=== PATIENT | female | born 1950 | race Caucasian/White ===

== ENCOUNTER 2022-07-13 09:00 | Outpatient (RCR) | payer MEDICARE, SELFPAY ==
--- NOTE | 2022-06-09 12:54 | HP.PTEVAL_ITS ---
Patient's Visit Information JANE ROBLES is a 71 year old F referred to Physical Therapy by AGUSTINA SÁNCHEZ with a diagnosis of S/P LTKR (PATIENT REPORTS PARTIAL NOT TOTAL REPLACEMENT). Date of Evaluation: 06/09/22 Physical Therapist: Luna Arriaza, PT, Cert MDT - Visit Plan Frequency: 2-3x /Week Duration: 4-6 Weeks Plan: GAIT TRAINING AND L LE ROM, STRETCHING AND STRENGTHENING TO HELP MEET SET GOALS. - Subjective Work/Leisure: RETIRED. Disability: NO. Present symptoms: LEFT KNEE PAIN. Present since: SEPTEMBER 2021. Pain Scale: WORST 8/10, LEAST 1/10. Currently: /10. Is it getting better, worse or staying the same: GETTING A LITTLE BETTER. Commenced as a result of: NO APPARENT REASON. PATIENT REPORTS THAT ALL OF A SUDDEN IT JUST STARTED HURTING REALLY BAD AND SHE COULD BARELY WALK. Symptoms at onset: LEFT KNEE. Worse: INITIATING GAIT AFTER SITTING, CHANGE OF POSITION FROM KNEE STRAIGHT TO BENT AND KNEE BENT TO STRAIGHT. Better: GETTING UP AND WALKING AROUND, PAIN MEDICATION. Disturbed sleep: NO. Previous hi story/Previous treatment: CORTISONE SHOT IN SEPTEMBER AND PHYSICAL THERAPY IN OCTOBER AND NOVEMBER AND IT DIDN'T GET ANY BETTER. S/P L TKR 06/06/22. Gait: PATIENT REPORTS SHE IS GETTING AROUND ON HER WALKER FINE AND HASN'T TRIED CANE YET. PATIENT HAS A CANE. Bowel or Bladder Dysfunction: NO. Accidents: NO. Unexplained weight loss: NO. Imaging: DEC 28 2021: MRI - STRESS FX OF INNER KNEE, LARGE TEAR IN THE MENISCUS AND ARTHRITIS per PATIENT REPORT. PMH/Recent major surgery: HTN, HIGH CHOLESTEROL. OTHER: WEARING IDA ANKLE PUMPS 20 HOURS A DAY - ORDERED X 2 WKS. - Objective GAIT: THIS PATIENT AMBULATES INDEP'LY INTO PT TODAY WITH A FWW, DECREASED CADANCE AND VERY MILD LIMP ON THE LLE. NO LOB. WALKER APPEARS TO BE TOO LOW AND THIS PT ELEVATED IT ONE NOTCH. PATIENT IS GOING TO TRY NEW HEIGHT. WOMAC score: 69/96. TU.29 SEC. Girth L Patella 44 cm. Girth 6 inch suprapatella 51.5 cm. L knee flexion AROM: 108 degress. L knee ext AROM: MINUS 5. L knee flex MMT; 3-/5. L knee ext MMT 3-/5. L hip MMT 3+/5. R MMT: 5/5. Sensory deficit: L LE LIGHT TOUCH SENSATION INTACT. Palpation: L LE INCISIONS LOOK GOOD WITHOUT ANY SIGNS OF INFECTION. TREATMENT: REVIEWED HEP AND CHECKED TECHNIQUE: HEEL SLIDES IN CHAIR, SINK EX'S, SUPINE: HS'S, QS'S, SLR'S, STANDING L HIP FLEX, ABD AND HEEL RAISES. PATIENT EVAN'S GOOD EX RETURN TODAY. ADJUSTED WALKER AND REINFORCED PROPER GAIT TECHNIQUE WITH HEEL STRIKE AND TOE OFF PHASES OF GAIT. - Balance/Special Test Scores Lower Extremity Functional Score: 13 TUG Test Time Seconds: 18.29 30 Second Chair Rise Test Seconds: 6 WOMAC Total Score: 69 WOMAC Percentatge: 28.1300 - Goals Goal 1:: INDEP AND SAFE GAIT ON LEVEL SURFACES AND UP AND DOWN STEPS WITH LEAST ASSISTIVE DEVICE. Goal Time Frame: 4-6 Weeks Goal 2:: IMPROVE FUNCTIONAL L KNEE ROM TO EASE ADL'S Goal Time Frame: 4-6 Weeks Goal 3:: INCREASE FUNCTIONAL STRENGTH OF LLE TO EASE ADL'S. Goal Time Frame: 4-6 Weeks Goal 4:: PATIENT WILL BE INDEP WITH A HEP FOR CONTINUED IMPROVEMENT ONCE FORMAL PHYSICAL THERPAY CONCLUDES. Goal Time Frame: 4-6 Weeks - Anticipated Interventions Patient/Client Instruction: Educate patient on: Condition, Plan of Care, Risk Factors For the Purpose of:: To improve self management Therapeutic Exercise to Include: Strength training, Flexibilty training, Gait and locomotor training, Neuromotor development For the Purpose of:: To decrease pain, To increase ROM, To improve muscle performance and motor function, To increase tolerance to activity/c ondition/position, To improve ability of physical actions for home/community/work/leisure, To improve gait and locomotor functions Thank you for the opportunity to evaluate your patient. For Medicare and Medicare HMO plans, please review the plan of care and approve it. It will need to be FAXED BACK to us at [phone] for Medicare purposes. For Medicare only, by signing this I certify the plan of care. Please let me know if there are questions or concerns regarding this plan of care. Physician Signature: Date:_
--- NOTE | 2022-06-30 14:34 | HP.PTREVAL ---
AGUSTINA SÁNCHEZ, It has been my pleasure to treat JANE ROBLES over the last 10 visits for S/P LTKR (PATIENT REPORTS PARTIAL NOT TOTAL REPLACEMENT). Please see the progress note below for an update on the physical therapy plan of care! Subjective: I CAN WALK WITHOUT ASSISTANCE AND WALKED 2.5 MILES THE OTHER DAY. I CAN GO UP AND DOWN STEPS WITH ONE RAIL NOW. MY KNEE KNEE ISN'T SWOLLEN AND DOESN'T HURT MUCH BUT IT ACHES. I'VE BEEN CLEANING THE HOUSE, COOKING AND DOING THE LAUNDRY. PATIENT STATES SHE FEELS SHE COULD BENEFIT FROM SOME MORE THERAPY. STATES SHE IS STARTING TO COME AND EX ON HER OWN BUT ISN'T SURE HOW TO COMPLETELY MANAGE ON HER OWN AT THIS POINT - COULD BARELY WALK AFTER SHE EX'D ON HER OWN. GOT BETTER WITH REST, ICE AND TYLONOL. Objective/Function: PATIENT WAS SEEN TODAY FOR RE-ASSESSMENT OF PROGRESS TOWARD THE SET PT GOALS AND THE NEED FOR FURTHER PHYSICAL THERAPY VS READINESS FOR DISCHARGE. PATIENT IS MAKING GOOD PROGRESS AND IS A GOOD CANDIDATE TO CONTINUE PT. PATIENT IS AGREEABLE. UPON EXAM TODAY: GAIT: THIS PATIENT AMBULATES INDEP'LY INTO PT TODAY WITHOUT ANY AD'S AND VERY MILD LIMP ON THE LLE. NO LOB. WOMAC score: 19/96. TU.32 SEC. Girth L Patella 42 cm. Girth 6 inch suprapatella 49.5 cm. L knee flexion AROM: 123 degress. L knee ext AROM: 0 DEG. L knee flex MMT; 4/5. L knee ext MMT 4/5. L hip MMT 4/5. Sensory deficit: L LE LIGHT TOUCH SENSATION INTACT. Palpation: L LE INCISIONS LOOK GOOD WITHOUT ANY SIGNS OF INFECTION. Plan Plan: CONTINUE PT DECREASING TO 2X'S A WK X 2 WKS HELPING PATIENT TRANSITION TO SAFE INDEP GYM EX. GAIT TRAINING AND L LE ROM, STRETCHING AND STRENGTHENING TO HELP MEET SET GOALS. Balance/Gait/Functional tests - Balance/Special Test Scores Lower Extremity Functional Score: 51 TUG Test Time Seconds: 9.32 Tug Test: <10 sec.=free mobile 30 Second Chair Rise Test Seconds: 12 WOMAC Total Score: 19 WOMAC Percentage: 80.2100 Goals Goal 1:: INDEP AND SAFE GAIT ON LEVEL SURFACES AND UP AND DOWN STEPS WITH LEAST ASSISTIVE DEVICE. Goal Time Frame: 4-6 Weeks Goal Progress: Progressing Goal 2:: IMPROVE FUNCTIONAL L KNEE ROM TO EASE ADL'S Goal Time Frame: 4-6 Weeks Goal Progress: Progressing Goal 3:: INCREASE FUNCTIONAL STRENGTH OF LLE TO EASE ADL'S. Goal Time Frame: 4-6 Weeks Goal Progress: Progressing Goal 4:: PATIENT WILL BE INDEP WITH A HEP FOR CONTINUED IMPROVEMENT ONCE FORMAL PHYSICAL THERPAY CONCLUDES. Goal Time Frame: 4-6 Weeks Goal Progress: Progressing Anticipated Interventions Patient/Client Instruction: Educate patient on: Condition, Plan of Care, Risk Factors For the Purpose of:: To improve self management Therapeutic Exercise to Include: Strength training, Flexibilty training, Gait and locomotor training, Neuromotor development For the Purpose of:: To decrease pain, To increase ROM, To improve muscle performance and motor function, To increase tolerance to activity/condition/position, To improve ability of physical actions for home/community/work/leisure, To improve gait and locomotor functions Please do not hesitate to contact me at [phone] by phone or if you have questions or concerns regarding this new plan of care! Sincerely, Luna Arriaza, PT, Cert MDT
--- NOTE | 2022-07-13 10:00 | HP.PTDCSUM ---
It has been my pleasure to treat JANE ROBLES referred by AGUSTINA SÁNCHEZ, with the diagnosis of S/P LTKR (PATIENT REPORTS PARTIAL NOT TOTAL REPLACEMENT) for a total of 14 visit(s). Discharge Date: Please see the following information for a summary of their discharge status. Subjective: PATIENT REPORTS STEPS ARE GOING BETTER. STATES THESE LAST 4 VISITS HAVE MADE A BIG DIFFERENCE AND SHE FEELS GOOD ABOUT CONTINUING ON HER OWN NOW. L knee Pain Intensity (Out of 10): 0 % Improvement: 75 Objective/Function: PATIENT WAS SEEN TODAY FOR RE-ASSESSMENT OF PROGRESS TOWARD THE SET PT GOALS AND THE NEED FOR FURTHER PHYSICAL THERAPY VS READINESS FOR DISCHARGE. ALL GOALS MET. APPROPRIATE FOR DISCHARGE. PATIENT IS AGREEABLE. UPON EXAM TODAY: GAIT: THIS PATIENT AMBULATES INDEP'LY INTO PT TODAY WITHOUT ANY AD'S AND VERY MILD LIMP ON THE LLE. NO LOB. ABLE TO ASCEND AND DESCEND FLIGHT OF STEPS WITHOUT UE ASSIST OR GROSS DEVIATION NOTED. WOMAC score: 10/96. L knee flexion AROM: 125 degress. L knee ext AROM: 0 DEG. L knee flex MMT; 4/5. L knee ext MMT 4/5. L hip MMT 4/5. Sensory deficit: L LE LIGHT TOUCH SENSATION INTACT. Palpation: L LE INCISIONS LOOK GOOD WITHOUT ANY SIGNS OF INFECTION. Goal 1:: INDEP AND SAFE GAIT ON LEVEL SURFACES AND UP AND DOWN STEPS WITH LEAST ASSISTIVE DEVICE. Goal Progress: Goal Met Goal 2:: IMPROVE FUNCTIONAL L KNEE ROM TO EASE ADL'S Goal Progress: Goal Met Goal 3:: INCREASE FUNCTIONAL STRENGTH OF LLE TO EASE ADL'S. Goal Progress: Goal Met Goal 4:: PATIENT WILL BE INDEP WITH A HEP FOR CONTINUED IMPROVEMENT ONCE FORMAL PHYSICAL THERPAY CONCLUDES. Goal Progress: Goal Met Plan: D/C TO INDEP EX. PATIENT IS AGREEABLE. If there are questions or concerns regarding this patient's physical therapy, please feel free to call me at [phone]. Thank you for the referral of this patient. Sincerely, Luna Arriaza, PT, Cert MDT Balance/Gait/Functional tests - Balance/Special Test Scores Lower Extremity Functional Score: 51 TUG Test Time Seconds: 9.32 Tug Test: <10 sec.=free mobile 30 Second Chair Rise Test Seconds: 12 WOMAC Total Score: 10 WOMAC Percentage: 89.5900
== END 2022-07-13 10:09 | disposition home or self-care (01) ==
LOC: PT 09:00
PROVIDERS: PCP Family Medicine
DX: Z96.652 Presence of left artificial knee joint (principal)
CPT/HCPCS: 97110; 97162; 97164; 97530

== ENCOUNTER 2022-10-13 10:51 | Observation (INO) | payer MEDICARE, SELFPAY ==
[2022-10-13] VITALS (8 sets, daily range): BP systolic 132–174; BP diastolic 72–99; PULSE 52–65; RESP 14–18; TEMP 36.4–36.8; O2SAT 95–99; BMI 27.0; BMI 27.1
--- NOTE | 2022-10-13 10:56 | ED.RN ---
PATIENT PLACED IN ROOM 2 WHILE I COMPLETED DOCUMENTING ON TRIAGE, DR. US NOTIFIED OF PRESENTING SYMPTOMS OF LOSS OF BALANCE.
--- NOTE | 2022-10-13 11:03 | ED.RN ---
pa at bedside at 1100.
--- NOTE | 2022-10-13 11:05 | EKG12_ITS ---
Test Reason : DIZZINESS Blood Pressure : / mmHG Vent. Rate : 056 BPM Atrial Rate : 056 BPM P-R Int : 198 ms QRS Dur : 076 ms QT Int : 440 ms P-R-T Axes : 024 004 -13 degrees QTc Int : 424 ms Sinus bradycardia Nonspecific T wave abnormality Abnormal ECG Confirmed by RACHEL HUNTER, SMITH ([id number]), communications editor KARIS HOBSON ([id number]) on 10/16/2022 10:48:02 A M Referred By: Confirmed By:ABDULLAHI RAMOS MD
--- NOTE | 2022-10-13 11:08 | EX.ED.DYSGE1 ---
HPI <BREE Andino - Last Filed: 10/14/22 14:31> History of Present Illness Chief Complaint: Dizziness Narrative Narrative: Patient presenting to have feelings of lightheadedness that she has had since this morning when she first woke up. She reports that she woke up around 7 AM to use the bathroom and felt lightheaded, almost like she could fall over. She reports that whenever she goes to ambulate she feels this way but feels asymptomatic at rest. She does not feel like the room is spinning. She also reports abdominal bloating that started this morning but denies any nausea, vomiting, abdominal pain, constipation, or diarrhea. She denies any recent illness, fever, chills, chest pain, shortness of breath. PMH includes hyperlipidemia and hypertension. PFSH <BREE Andino - Last Filed: 10/14/22 14:31> PFSH Medical History Arthroplasty of knee planned Tonsillectomy planned Home Medications calcium carbonate 600 mg-vitamin D3 20 mcg (800 unit) tablet 1 ea PO DAILY 01/08/15 [History Last Taken Unknown] simvastatin 20 mg tablet 20 mg PO QHS 01/08/15 [History Last Taken Unknown] aspirin 81 mg tablet,delayed release 81 mg PO DAILY 10/13/22 [History Last Taken Unknown] lisinopril 2.5 mg tablet 2.5 mg PO DAILY 10/13/22 [History Last Taken Unknown] Allergy/AdvReac Type Severity Reaction Status Date / Time No Known Allergies Allergy Verified 10/13/22 10:56 Family History (Updated 10/13/22 @ 15:[address] Randolph Kennedy MD) Mother CVA (cerebral vascular accident) Social History Smoking Status: Never smoker ROS <BREE Andino - Last Filed: 10/14/22 14:31> ROS ED Constitutional Constitutional ED: Denies chills or fever(s) Eyes Eyes: Denies blurry vision Cardiovascular Cardiovascular: Denies chest pain or palpitations Respiratory/Chest Respiratory/Chest: Denies cough or dyspnea Gastrointestinal Gastrointestinal: Denies abdominal pain, nausea or vomiting Musculoskeletal Musculoskeletal: Denies arthralgias or myalgias Integumentary Denies rash Neurologic Neurologic: Denies confusion, dizziness, paresthesias or weakness Psychiatric Psychiatric: Denies anxiety or depression EXAM <BREE Andino - Last Filed: 10/14/22 14:31> Physical Exam Const Vital Signs: 10/13/22 15:05 Pulse Rate 52 L Respiratory Rate 17 Blood Pressure 157/81 H Blood Pressure Mean 106 Pulse Ox 98 Positive well nourished, well developed and no apparent distress General Appearance ED: well developed HEENT Reports normocephalic and head/scalp atraumatic Mouth ED: Yes moist mucous membranes normal Eyes PERRL and EOMs intact bilaterally Neck full ROM and supple Chest Wall inspection of chest normal Resp normal respiratory effort and clear to auscultation bilaterally Cardio regular rate and regular rhythm GI soft to palpation, non-tender, non-distended and no masses Back/Spine normal ROM and normal to inspection Extremity normal to inspection and full ROM Neuro oriented x3, CN's II-XII intact bilaterally, moves all extremities, no focal motor deficits and no sensory deficits noted Sensorium / Orientation: awake and alert Coordination / Balance: [id number] test normal Gait (Neuro): ataxic Motor Exam: strength 5/5 throughout and no pronator drift Psych mental status grossly normal and thought process normal Skin no rashes or lesions noted and no wounds <Lan Moscoso MD - Last Filed: 10/14/22 22:13> Physical Exam Const Vital Signs: 10/13/22 15:05 Pulse Rate 52 L Respiratory Rate 17 Blood Pressure 157/81 H Blood Pressure Mean 106 Pulse Ox 98 MDM <BREE Andino - Last Filed: 10/14/22 14:31> [facility] Narrative Medical decision making narrative: Patient presenting today due to lightheadedness that started this morning when she woke up. She only feels lightheaded when she ambulates, she does not feel this way at rest. She reports feelings of abdominal bloating without any abdominal pain, nausea, or vomiting. She is well-appearing and in no acute distress, vitals are unremarkable. No prior history of TIA or stroke, she is not having any chest pain or shortness of breath. Labs will be obtained to rule out anemia, leukocytosis, LONG, electrolyte abnormality. Labs overall are unremarkable, troponin WNL and EKG sinus bradycardia, ruling out ACS. Given her abdominal bloating, CT of the abdomen and pelvis will be obtained to rule out SBO and other etiology. CT shows fatty liver and a hemartoma to the left adnexa. Patient was ambulated by nursing and felt like she was going to fall over, nurse reported that it looked like she was not walking in a completely straight line. She was given meclizine and ambulated again about 45 minutes after administration, she reported it did help her symptoms some but she still felt off balance. Because of this, head CT was obtained and is negative for any acute intracranial abnormality. There are concerns for posterior stroke, her NIH is 0. I discussed patient with hospitalist and she will be admitted in stable condition for further evaluation and work-up. She is comfortable with plan. Lab Data Attestation: I reviewed the patient's lab results. Labs: Laboratory Results - last 24 hr 10/13/22 11:02 Troponin I High Sens 5 Radiography Diagnostic Testing: Clinical Impression(s) from Imaging Studies Abdomen/Pelvis CT 10/13/22 11:12 IMPRESSION: Fatty infiltration of the liver. Scattered sigmoid diverticula. Findings suggestive of an 8.3 mm hamartoma in the left adnexa. Electronically Signed: David Baeza MD at 11:59 EDT , Brain CT 10/13/22 14:21 IMPRESSION: Chronic involutional changes of the brain. Electronically Signed: David Baeza MD at 14:51 EDT , EKG Initial EKG: Comments: 56 bpm, sinus bradycardia, no ST elevation, reviewed and interpreted by attending ED physician <Lan Moscoso MD - Last Filed: 10/14/22 22:13> [facility] MDM Narrative Medical decision making narrative: Patient presenting today due to lightheadedness that started this morning when she woke up. She only feels lightheaded when she ambulates, she does not feel this way at rest. She reports feelings of abdominal bloating without any abdominal pain, nausea, or vomiting. She is well-appearing and in no acute distress, vitals are unremarkable. No prior history of TIA or stroke, she is not having any chest pain or shortness of breath. Labs will be obtained to rule out anemia, leukocytosis, LONG, electrolyte abnormality. Labs overall are unremarkable, troponin WNL and EKG sinus bradycardia, ruling out ACS. Given her abdominal bloating, CT of the abdomen and pelvis will be obtained to rule out SBO and other etiology. CT shows fatty liver and a hemartoma to the left adnexa. Patient was ambulated by nursing and felt like she was going to fall over, nurse reported that it looked like she was not walking in a completely straight line. She was given meclizine and ambulated again about 45 minutes after administration, she reported it did help her symptoms some but she still felt off balance. Because of this, head CT was obtained and is negative for any acute intracranial abnormality. There are concerns for posterior stroke, her NIH is 0. I discussed patient with hospitalist and she will be admitted in stable condition for further evaluation and work-up. She is comfortable with plan. I have personally performed a face to face assessment of the patient and have reviewed the MACY Note. I performed a substantive portion of the visit including all aspects of the following. My shabazz findings include: History is dizziness and lightheadedness. Exam is afebrile. Vital signs noted. Regular rate and rhythm. Lungs clear to auscultation bilaterally. Abdomen soft and nontender. Neurological examination nonfocal and nonlateralizing. Medical Decision Making check labs. Check EKG. CT of the brain obtained, radiology report reviewed, no acute process. Administer meclizine. Unsteady gait continues with intractable vertigo. Discussed with hospitalist. Observation. Other additions or changes: [None] History & Record Review Discussion w/independent historian: Patient and Family Additional record(s) reviewed:: Prior ED visit Lab Data Labs: Laboratory Results - last 24 hr 10/13/22 11:02 Troponin I High Sens 5 Radiography Diagnostic Testing: Clinical Impression(s) from Imaging Studies Abdomen/Pelvis CT 10/13/22 11:12 IMPRESSION: Fatty infiltration of the liver. Scattered sigmoid diverticula. Findings suggestive of an 8.3 mm hamartoma in the left adnexa. Electronically Signed: David Baeza MD at 11:59 EDT , Brain CT 10/13/22 14:21 IMPRESSION: Chronic involutional changes of the brain. Electronically Signed: David Baeza MD at 14:51 EDT , Discharge Plan Dx/Rx/DC Orders Clinical Impression: Light-headedness, Ataxia Disposition Disposition: Acute Care Hospital [facility] Discharge Date/Time: 10/13/22 17:25
--- NOTE | 2022-10-13 11:12 | CT_ITS ---
STUDY: CT ABDOMEN AND PELVIS WITH CONTRAST REASON FOR EXAM: Female, 72 years old. Abdominal bloating. Loss of balance. RADIATION DOSAGE (If Supplied By Facility): CTDIvol = ( 11.86 ) mGy, DLP = ( 714.74 ) mGycm TECHNIQUE: Transaxial images were obtained from the dome of the diaphragm to the symphysis pubis without oral contrast. IV 100mL Isovue-300 was administered. Sagittal and coronal images were reconstructed. Individualized dose optimization techniques were used for this CT. COMPARISON: Comparison is made with prior study dated January 08, 2015. FINDINGS: Minimal increased linear markings at the lung bases suggesting mild lingular atelectasis. Coronary artery calcification. There is decreased attenuation of the liver consistent with steatosis. Normal gallbladder and extrahepatic biliary system. Normal spleen. Normal pancreas. Normal bilateral adrenal glands. Fullness of the right renal pelvis although no lizbeth hydronephrosis is seen. Normal left kidney. There is a small hiatal hernia. Normal small intestine. There are scattered colonic diverticula consistent with diverticulosis. The appendix is visualized and appears normal. There is scattered atherosclerotic calcification of the abdominal aorta, without a demonstrated aneurysm. Normal inferior vena cava. Normal retroperitoneum. Normal urinary bladder. There is a 3.2 mm fat-containing nodule in the left adnexa suggestive of a possible small hamartoma. Normal abdominal wall. Normal osseous structures. CT/Abdomen/Pelvis W IV Cont ONLY IMPRESSION: Fatty infiltration of the liver. Scattered sigmoid diverticula. Findings suggestive of an 8.3 mm hamartoma in the left adnexa. Electronically Signed: David Baeza MD at 11:59 EDT ,
[2022-10-13 11:13] LABS: Absolute Lymphocyte Count 1.97 X10^3/uL (0.83-4.51); Absolute Neutrophil Count 3.1 X10^3/uL (2.0-7.7); Basophil# 0.08 X10^3/uL; Basophil% 1.3 % (0-1); Eosinophil# 0.33 X10^3/uL; Eosinophils% 5.4 % (0-5); Hematocrit 40.3 % (37-47); Hemoglobin 13.4 g/dL (12.0-15.0); Lymphocyte # 1.97 X10^3/ul (0.83-4.51); Lymphocyte % 32.5 % (19-41); Mean Corp Hgb Conc 33.3 g/dL (32-36); Mean Corpuscular Hgb 29.2 pg (27.0-32.0); Mean Corpuscular Volume 87.8 fL (81-99); Mean Platelet Vol. 10.4 fl (6.2-12.0); Monocyte# 0.59 X10^3/uL; Monocyte% 9.7 % (0-10); NRBC Flagged by Analyzer 0 % (0-5); Neutrophil # 3.08 X10^3/uL (2.7-7.7); Neutrophil % 50.8 % (47-70); Platelet Count 193 K/mm3 (150-450); RBC Distribution Width CV 13.2 % (11.6-14.6); RBC Distribution Width SD 42.7 fl (35.1-43.9); Red Blood Count 4.59 M/mm3 (4.2-5.4); White Blood Count 6.1 K/mm3 (4.4-11.0)
[2022-10-13 11:24] LABS: Bedside Glucose 82 mg/dL (74-106)
[2022-10-13 11:26] LABS: Anion Gap 9 (5-15); BUN 13 mg/dL (7-18); BUN/Creat Ratio 12.9 RATIO (10-20); Calcium,Total 9.5 mg/dL (8.5-10.1); Chloride 106 mmol/L (98-107); Creatinine, Serum 1.01 mg/dL (0.55-1.02); EST Glomerular Filtration Rate 57 mL/min (>60); Est Glom Filt Rate - Afr Amer 69 mL/min (>60); Estimated Creatinine Clearance 48.24 ml/min; Glucose 105 mg/dL (74-106); Potassium 3.7 mmol/L (3.5-5.1); Sodium Level 142 mmol/L (136-145)
[2022-10-13 12:23] LABS: Bacteria 0 SEEN /hpf (None Seen); Mucous, Urine 0 SEEN /hpf (<or=2+); Red Blood Cells-Urine 0 SEEN /hpf (0-5); Squamous Epithelial Cells - UA 0 SEEN /hpf (5-10)
[2022-10-13 12:32] LABS: Color, Urine Yellow (Yellow); Glucose, Dipstick Normal (Normal); Ketone-Dipstick Negative (Negative); Leukocyte Esterase-Dipstick 25 /ul (Negative); Nitrite-Dipstick Negative (Negative); Occult Blood-Urine Negative /ul (Negative); Protein-Dipstick Negative (Negative); Urine Bilirubin Dipstick Negative (Negative); Urine Clarity Sl. Cloudy (Clear); Urine Urobilinogen Normal (Normal)
[2022-10-13 12:40] LABS: White Blood Cells 0-5 SEEN /hpf (0-5)
[2022-10-13] MEDS: Meclizine HCl 25 MG Tablet PO (12:57)
--- NOTE | 2022-10-13 14:21 | CT_ITS ---
STUDY: CT BRAIN WITHOUT CONTRAST REASON FOR EXAM: Female, 72 years old. Dizziness and lightheadedness. Patient received IV contrast earlier in the day. RADIATION DOSAGE (If Supplied By Facility): CTDIvol = ( 44.99 ) mGy, DLP = ( 745.49 ) mGycm TECHNIQUE: Transaxial CT imaging of the brain was performed without administration of intravenous contrast material. Individualized dose optimization techniques were used for this CT. COMPARISON: No relevant priors. FINDINGS: Normal soft tissue structures. Normal calvarium. There is mild cerebral atrophy with widening of the extra-axial spaces and ventricular dilatation. There are areas of decreased attenuation within the white matter tracts of the supratentorial brain, consistent with microvascular disease changes. There are small punctate calcifications of the basal ganglia which are seen in the aging brain as a normal variant. Normal brainstem. Normal cerebellum. There is no intracranial hemorrhage. There are no findings of an acute ischemic infarction. Atherosclerotic calcification of the vertebral arteries and cavernous portions of the internal carotid arteries bilaterally. Normal visualized paranasal sinuses. CT/Brain/Head without Contrast IMPRESSION: Chronic involutional changes of the brain. Electronically Signed: David Baeza MD at 14:51 EDT ,
[2022-10-13 14:58] LABS: Troponin-I HS 5 pg/mL (3.0-54.0)
--- NOTE | 2022-10-13 15:51 | MRI_ITS ---
STUDY: MRI BRAIN WITHOUT CONTRAST REASON FOR EXAM: Female, 72 years old. Vertigo, lower extremity weakness TECHNIQUE: Standardized multiplanar fat and water weighted pulse sequences were obtained. COMPARISON: 10/13/[address] HEMISPHERES, CEREBELLUM AND BRAINSTEM: 1. The cerebral parenchyma, ventricular system, subarachnoid spaces have normal configuration. There is a normal gyral pattern. There is normal randhawa/white differentiation. No midline shift. 2. 4 mm FLAIR hyperintense focus in the left parietal subcortical white matter corresponds to a vague hypodensity on same day CT, probably old infarct. The hemispheric white matter has otherwise normal appearance. 3. No intraparenchymal mass, hemorrhage, or acute territorial infarct. 4. The cerebellum, brainstem, basilar and suprasellar cisterns have normal appearance. No Chiari malformation. PITUITARY: Empty sella. CSF SPACES: Appropriate for age. No hydrocephalus. Basal cisterns are patent. VESSELS: 1. There are normal flow voids noted in the great vessels at the skull base ORBITS AND PARANASAL SINUSES: 1. Both globes, extraocular muscles, optic nerves and retrobulbar fat appear unremarkable. 2. Paranasal sinuses are clear. BONY ELEMENTS: Bony elements of the cranial vault, facial skeleton and skull base have normal appearance. SCALP AND SOFT TISSUES: Normal appearance of the soft tissues of the scalp and the visualized face MRI/Brain without Contrast IMPRESSION: 1. Empty sella can be associated with idiopathic intracranial hypertension. 2. No intracranial mass, hemorrhage, or acute territorial infarct. 3. No radiographically significant sinus disease. Electronically Signed: Farrukh Boyer MD at 17:20 EDT ,
--- NOTE | 2022-10-13 15:54 | PCM.HP.STD ---
HPI - General General Date of Admission: 10/13/22 Date of Service: 10/13/22 Chief Complaint: Acute vertigo HPI Narrative JANE ROBLES, is a 72 F who presents with acute vertigo. Patient is in relatively good health with past medical history significant for essential hypertension as well as dyslipidemia. Her symptoms started on the morning of presentation. She also did realize she was leaning more to the left. In view of the persistent nature of his symptoms presented to the emergency department. Initial head CT obtained came back unremarkable admitted to monitored bed for subsequent evaluation of possible procedure circulation CVA [facility] Medical History Arthroplasty of knee planned Tonsillectomy planned Home Medications calcium carbonate 600 mg-vitamin D3 20 mcg (800 unit) tablet 1 ea PO DAILY 01/08/15 [History Last Taken Unknown] simvastatin 20 mg tablet 20 mg PO QHS 01/08/15 [History Last Taken Unknown] aspirin 81 mg tablet,delayed release 81 mg PO DAILY 10/13/22 [History Last Taken Unknown] lisinopril 2.5 mg tablet 2.5 mg PO DAILY 10/13/22 [History Last Taken Unknown] Allergy/AdvReac Type Severity Reaction Status Date / Time No Known Allergies Allergy Verified 10/13/22 10:56 Family History (Updated 10/13/22 @ 15:[address] Randolph Kennedy MD) Mother CVA (cerebral vascular accident) Social History Smoking Status: Never smoker ROS ROS Narrative GENERAL: denies fever, chills, night sweats, weight loss, anorexia HEENT: denies headache, sinus congestion, or drainage, dysphagia RESPIRATORY: denies cough, sputum production, shortness of breath, dyspnea on exertion CARDIAC: denies chest pain, palpitations, orthopnea, PND GASTROINTESTINAL: denies abdominal pain, nausea, vomiting, melena, GENITOURINARY: denies dysuria, urgency, frequency, heamaturia EXTREMITY: denies swelling MUSCULOSKELETAL: denies current joint pain or tenderness NEUROLOGIC: denies focal numbness, weakness, tingling HEMATOLOGIC: denies easy bruising and/or hemorrhage INTEGUMENT: denies rashes PSYCHIATRIC: denies suicidal or homicidal ideation Vital Signs Vital Signs Vital Signs: 10/13/22 10:52 10/13/22 11:01 10/13/22 11:24 Temperature 97.5 F L Temperature Source Temporal Pulse Rate 59 L Pulse Rate [Lying] 58 L Pulse Rate [Sitting (for 1 minute prior to obtaining)] 55 L Pulse Rate [Standing (for 1 minute prior to obtaining)] 65 Respiratory Rate 14 Respiratory Pattern Tachypnea Blood Pressure 145/90 H Blood Pressure [Lying] 160/72 H Blood Pressure [Sitting (for 1 minute prior to obtaining)] 174/99 H Blood Pressure [Standing (for 1 minute prior to obtaining)] 165/90 H Blood Pressure Mean 108 Blood Pressure Mean [Lying] 101 Blood Pressure Mean [Sitting (for 1 minute prior to obtaining)] 124 Blood Pressure Mean [Standing (for 1 minute prior to obtaining)] 115 Pulse Ox 97 Oxygen Delivery Method Room Air 10/13/22 13:59 10/13/22 15:05 Temperature Temperature Source Pulse Rate 54 L 52 L Pulse Rate [Lying] Pulse Rate [Sitting (for 1 minute prior to obtaining)] Pulse Rate [Standing (for 1 minute prior to obtaining)] Respiratory Rate 16 17 Respiratory Pattern Blood Pressure 157/81 H Blood Pressure [Lying] Blood Pressure [Sitting (for 1 minute prior to obtaining)] Blood Pressure [Standing (for 1 minute prior to obtaining)] Blood Pressure Mean 106 Blood Pressure Mean [Lying] Blood Pressure Mean [Sitting (for 1 minute prior to obtaining)] Blood Pressure Mean [Standing (for 1 minute prior to obtaining)] Pulse Ox 98 Oxygen Delivery Method Weight Weight: 78.3 kg Body Mass Index (BMI) 27.0 Physical Exam Narrative GENERAL: cooperative HEENT: Atraumatic; normocephalic EYES; Anicteric, Normal Conjunctiva NECK; supple, normal thyroid, RESPIRATORY: Diminished to auscultation CARDIOVASCULAR: Regular S1 S2, GI: soft, normoactive bowel sounds, : No Renal angle tenderness; EXTREMITIES: No edema, no clubbing, MUSCULOSKELETAL: no muscle wasting NEURO: Awake; no lateralizing signs. SKIN: No Rash PSYCH; Flat affect Results Lab / Micro Data Result Diagrams: 10/13/22 11:02 10/13/22 11:02 Labs: Laboratory Results - last 24 hr 10/13/22 11:01: POC Glucose 82 10/13/22 11:02: WBC 6.1, RBC 4.59, Hgb 13.4, Hct 40.3, MCV 87.8, MCH 29.2, MCHC 33.3, RDW Std Deviation 42.7, RDW Coeff of Lauren 13.2, Plt Count 193, MPV 10.4, Immature Gran % (Auto) 0.300, Neut % (Auto) 50.8, Lymph % (Auto) 32.5, [place] % (Auto) 9.7, Eos % (Auto) 5.4 H, Baso % (Auto) 1.3 H, Absolute Neuts (auto) 3.1, Absolute Lymphs (auto) 1.97, Nucleated RBC % 0 10/13/22 11:02: Sodium 142, Potassium 3.7, Chloride 106, Carbon Dioxide 27.0, Anion Gap 9, BUN 13, Creatinine 1.01, Estim Creat Clear Calc 48.24, Est GFR (MDRD) Af Amer 69, Est GFR (MDRD) Non-Af 57 L, BUN/Creatinine Ratio 12.9, Glucose 105, Calcium 9.5 10/13/22 11:02: Troponin I High Sens 5 10/13/22 12:15: Urine Color Yellow, Urine Clarity Sl. Cloudy, Urine pH 8.0, Ur Specific [place] 1.010, Urine Protein Negative, Urine Glucose (UA) Normal, Urine Ketones Negative, Urine Occult Blood Negative, Urine Nitrite Negative, Urine Bilirubin Negative, Urine Urobilinogen Normal, Ur Leukocyte Esterase 25 H, Urine RBC 0 SEEN, Urine WBC 0-5 SEEN, Ur Squamous Epith Cells 0 SEEN, Urine Bacteria 0 SEEN, Urine Mucus 0 SEEN Radiology Impression Abdomen/Pelvis CT 10/13/22 11:12 IMPRESSION: Fatty infiltration of the liver. Scattered sigmoid diverticula. Findings suggestive of an 8.3 mm hamartoma in the left adnexa. Electronically Signed: David Baeza MD at 11:59 EDT , Brain CT 10/13/22 14:21 IMPRESSION: Chronic involutional changes of the brain. Electronically Signed: David Baeza MD at 14:51 EDT , Assessment & Plan Assessment/Plan (1) Vertigo: PLAN: Plan Patient is a 72-year-old lady presented with acute vertigo 1. Acute vertigo ? Patient has been admitted to monitored bed currently undergoing evaluation for possible posterior circulation is CVA. As part of patient's management ordered MRI of the brain also ordered CT angio of the head and neck as well as 2D echo patient is already on statin therapy as well as antiplatelet therapy with aspirin did continue. Also did request for every 4 neurochecks 2. Dyslipidemia -Patient is on statin therapy, continued at home dose 3. Hypertension - Blood pressure controlled, home medications continued with dose adjustment as needed 4. DVT prophylaxis - On enoxaparin Time spent in the patient's overall evaluation,decision-making process, review of diagnostic data, adjustment of management, discussion with other providers, nursing nursing and ancillary staff involved in patient's care documentation,55 Minutes Charges/Coding Visit Charges Inpatient E&M: 46716 Init Hosp L2
--- NOTE | 2022-10-13 17:30 | ECHOD_ITS ---
Reason For Study: CVA/TIA Procedure This was a 2D Doppler, Color Flow transthoracic echocardiogram. Exam performed portable in patient room. Left Ventricle Normal LV size. The estimated ejection fraction is 65 %. Normal diastology for age. No regional wall motion abnormalities noted. Right Ventricle Normal RV size. Normal systolic function. Atria Normal left atrium. Normal right atrium. No doppler evidence for ASD. Mitral Valve There is moderate mitral annular calcification. Moderate focal mitral valve calcification of the anterior leaflet. There is no mitral valve stenosis. Mild (1+) mitral valve insufficiency. Tricuspid Valve There is no tricuspid stenosis. Trivial tricuspid valve insufficiency. Pulmonary artery systolic pressure is 25 mmHg. Aortic Valve Trisinus/trileaflet aortic valve. There is no aortic stenosis. No aortic valve insufficiency. Pulmonic Valve There is no pulmonic valvular stenosis. Trivial pulmonic valve insufficiency. Great Vessels Normal aortic root. Pericardium/Pleural No pericardial effusion. Medication Performed a rapid injection of agitated mix of 9 cc saline and 1cc air to assess for atrial septal defect. MMode/2D Measurements & Calculations LVIDd: 4.3 cm IVSd: 0.68 cm Ao root diam: 3.2 cm LVIDs: 2.4 cm LVPWd: 0.93 cm RVDd: 3.0 cm FS: 43.9 % LAV(MOD-bp): 29.7 ml LVAd ap4: 18.9 cm2 LVAd ap2: 17.3 cm2 LAV(MOD-bp) Indexed: 15.6 ml/m2 LVLd ap4: 6.8 cm LVLd ap2: 6.3 cm LAV(MOD-sp2): 35.5 ml EDV(MOD-sp4): 42.4 ml EDV(MOD-sp2): 38.9 ml LAV(MOD-sp4): 19.6 ml EDV(sp4-el): 44.6 ml EDV(sp2-el): 40.1 ml LVAs ap4: 9.9 cm2 LVAs ap2: 9.8 cm2 LVLs ap4: 5.5 cm LVLs ap2: 5.7 cm ESV(MOD-sp4): 15.1 ml ESV(MOD-sp2): 14.1 ml ESV(sp4-el): 15.0 ml ESV(sp2-el): 14.2 ml EF(MOD-sp4): 64.3 % EF(MOD-sp2): 63.8 % EF(sp4-el): 66.4 % SV(MOD-sp4): 27.3 ml SV(MOD-sp2): 24.8 ml SV(sp4-el): 29.6 ml LA A4 area: 9.9 cm2 LA dimension(2D): 3.2 cm RA A4 area: 8.4 cm2 Time Measurements MV dec time: 0.21 sec Doppler Measurements & Calculations MV E max sukh: 72.3 cm/sec Lat Peak E' Sukh: 8.9 cm/sec Med Peak E' Sukh: 7.4 cm/sec MV A max sukh: 88.2 cm/sec E/E' lat: 8.2 E/E' med: 9.8 MV E/A: 0.82 Ao V2 max: 138.6 cm/sec LV V1 max: 93.1 cm/sec MV dec slope: 343.8 cm/sec2 Ao max P.7 mmHg LV V1 max P.5 mmHg Ao V2 mean: 101.1 cm/sec LV V1 mean P.1 mmHg Ao mean P.6 mmHg LV V1 mean: 68.1 cm/sec Ao V2 VTI: 35.0 cm LV V1 VTI: 26.2 cm AV (velocity ratio): 0.75 PA V2 max: 77.0 cm/sec TR max sukh: 230.3 cm/sec PA V2 mean: 51.2 cm/sec TR max P.2 mmHg ECHO/Echo Complete Interpretation Summary The estimated ejection fraction is 65 %. Mild (1+) mitral valve insufficiency. Ordering Physician: Randolph Kennedy Performed By: Agustina Ledezma RDCS
[2022-10-13] MEDS: Lisinopril 2.5 MG Tablet PO (18:31)
[2022-10-13] MEDS: Atorvastatin Calcium 10 MG Tablet PO (21:39)
[2022-10-14 03:45] VITALS: BP 136/67; PULSE 60; RESP 14; TEMP 36.7; O2SAT 96
[2022-10-14 05:00] VITALS: BMI 27.1
[2022-10-14 06:39] LABS: Absolute Lymphocyte Count 2.13 X10^3/uL (0.83-4.51); Absolute Neutrophil Count 3.5 X10^3/uL (2.0-7.7); Basophil# 0.08 X10^3/uL; Basophil% 1.2 % (0-1); Eosinophil# 0.33 X10^3/uL; Eosinophils% 4.9 % (0-5); Hematocrit 38.2 % (37-47); Hemoglobin 12.8 g/dL (12.0-15.0); Lymphocyte # 2.13 X10^3/ul (0.83-4.51); Lymphocyte % 31.7 % (19-41); Mean Corp Hgb Conc 33.5 g/dL (32-36); Mean Corpuscular Hgb 29.8 pg (27.0-32.0); Mean Corpuscular Volume 88.8 fL (81-99); Mean Platelet Vol. 10.7 fl (6.2-12.0); Monocyte# 0.69 X10^3/uL; Monocyte% 10.3 % (0-10); NRBC Flagged by Analyzer 0 % (0-5); Neutrophil # 3.46 X10^3/uL (2.7-7.7); Neutrophil % 51.6 % (47-70); Platelet Count 183 K/mm3 (150-450); RBC Distribution Width CV 13.3 % (11.6-14.6); RBC Distribution Width SD 43.2 fl (35.1-43.9); White Blood Count 6.7 K/mm3 (4.4-11.0)
[2022-10-14 07:30] VITALS: O2SAT 92
[2022-10-14 07:41] LABS: Anion Gap 6 (5-15); BUN 16 mg/dL (7-18); Calcium,Total 8.9 mg/dL (8.5-10.1); Chloride 108 mmol/L (98-107); Cholesterol 203 mg/dL (200); EST Glomerular Filtration Rate 58 mL/min (>60); Est Glom Filt Rate - Afr Amer 70 mL/min (>60); Estimated Creatinine Clearance 41.45 ml/min; Glucose 93 mg/dL (74-106); High Density Lipoprotein 62 mg/dL; Magnesium 2.5 mg/dL (1.6-2.6); Phosphorus 4.1 mg/dL (2.5-4.9); Sodium Level 140 mmol/L (136-145); Triglycerides 119 mg/dL; Very Low Density Lipoprotein 24 mg/dL (5-40)
--- NOTE | 2022-10-14 07:51 | PCM.PN.HOSP ---
Reason for Visit Reason for Visit: Diagnoses Dizziness and giddiness (10/13/22) Subjective Subjective Seen symptoms resolved plan is for patient to undergo subsequent evaluation with CTA of the head and neck as well as 2D echo Objective Data Objective Data Vital Signs: Vital Signs Temp Pulse Resp BP Pulse Ox O2 Del Method 98.0 F 60 14 136/67 H 96 Room Air 10/14/22 03:45 10/14/22 03:45 10/14/22 03:45 10/14/22 03:45 10/14/22 03:45 10/14/22 03:45 Oxygen Delivery Method Room Air Weight: 69.581 kg Body Mass Index (BMI) 27.1 Intake & Output: Intake and Output for Last 24 Hours 10/12/22 10/13/22 10/14/22 23:59 23:59 23:59 Intake Total 170 / 170 Balance 170 / 170 Lab / Micro Data Result Diagrams: 10/14/22 06:13 10/14/22 06:13 Labs: Laboratory Results - last 24 hr 10/13/22 11:01: POC Glucose 82 10/13/22 11:02: WBC 6.1, RBC 4.59, Hgb 13.4, Hct 40.3, MCV 87.8, MCH 29.2, MCHC 33.3, RDW Std Deviation 42.7, RDW Coeff of [place] 13.2, Plt Count 193, MPV 10.4, Immature Gran % (Auto) 0.300, Neut % (Auto) 50.8, Lymph % (Auto) 32.5, [place] % (Auto) 9.7, Eos % (Auto) 5.4 H, Baso % (Auto) 1.3 H, Absolute Neuts (auto) 3.1, Absolute Lymphs (auto) 1.97, Nucleated RBC % 0 10/13/22 11:02: Sodium 142, Potassium 3.7, Chloride 106, Carbon Dioxide 27.0, Anion Gap 9, BUN 13, Creatinine 1.01, Estim Creat Clear Calc 48.24, Est GFR (MDRD) Af Amer 69, Est GFR (MDRD) Non-Af 57 L, BUN/Creatinine Ratio 12.9, Glucose 105, Calcium 9.5 10/13/22 11:02: Troponin I High Sens 5 10/13/22 12:15: Urine Color Yellow, Urine Clarity Sl. Cloudy, Urine pH 8.0, Ur Specific [place] 1.010, Urine Protein Negative, Urine Glucose (UA) Normal, Urine Ketones Negative, Urine Occult Blood Negative, Urine Nitrite Negative, Urine Bilirubin Negative, Urine Urobilinogen Normal, Ur Leukocyte Esterase 25 H, Urine RBC 0 SEEN, Urine WBC 0-5 SEEN, Ur Squamous Epith Cells 0 SEEN, Urine Bacteria 0 SEEN, Urine Mucus 0 SEEN 10/14/22 06:13: WBC 6.7, RBC 4.30, Hgb 12.8, Hct 38.2, MCV 88.8, MCH 29.8, MCHC 33.5, RDW Std Deviation 43.2, RDW Coeff of [place] 13.3, Plt Count 183, MPV 10.7, Immature Gran % (Auto) 0.300, Neut % (Auto) 51.6, Lymph % (Auto) 31.7, [place] % (Auto) 10.3 H, Eos % (Auto) 4.9, Baso % (Auto) 1.2 H, Absolute Neuts (auto) 3.5, Absolute Lymphs (auto) 2.13, Nucleated RBC % 0 10/14/22 06:13: Sodium 140, Potassium 4.0, Chloride 108 H, Carbon Dioxide 26.0, Anion Gap 6, BUN 16, Creatinine 1.00, Estim Creat Clear Calc 41.45, Est GFR (MDRD) Af Amer 70, Est GFR (MDRD) Non-Af 58 L, BUN/Creatinine Ratio 16.0, Glucose 93, Calcium 8.9, Phosphorus 4.1, Magnesium 2.5, Triglycerides 119, Cholesterol 203 H, LDL Cholesterol 117, VLDL Cholesterol 24, HDL Cholesterol 62 Radiography Diagnostic Testing: Radiology Impression Abdomen/Pelvis CT 10/13/22 11:12 IMPRESSION: Fatty infiltration of the liver. Scattered sigmoid diverticula. Findings suggestive of an 8.3 mm hamartoma in the left adnexa. Electronically Signed: David Baeza MD at 11:59 EDT , Brain CT 10/13/22 14:21 IMPRESSION: Chronic involutional changes of the brain. Electronically Signed: David Baeza MD at 14:51 EDT , Brain MRI 10/13/22 15:51 IMPRESSION: 1. Empty sella can be associated with idiopathic intracranial hypertension. 2. No intracranial mass, hemorrhage, or acute territorial infarct. 3. No radiographically significant sinus disease. Electronically Signed: Farrukh Boyer MD at 17:20 EDT , Physical Exam Narrative GENERAL: cooperative HEENT: Atraumatic; normocephalic EYES; Anicteric, Normal Conjunctiva NECK; supple, normal thyroid, RESPIRATORY: Diminished to auscultation CARDIOVASCULAR: Regular S1 S2, GI: soft, normoactive bowel sounds, : No Renal angle tenderness; EXTREMITIES: No edema, no clubbing, MUSCULOSKELETAL: no muscle wasting NEURO: Awake; no lateralizing signs. SKIN: No Rash PSYCH; Flat affect Assessment & Plan Assessment/Plan (1) Vertigo: PLAN: Plan Patient is a 72-year-old lady presented with acute vertigo 1. Acute vertigo ? Patient has been admitted to monitored bed currently undergoing evaluation for possible posterior circulation is CVA. As part of patient's management ordered MRI of the brain also ordered CT angio of the head and neck as well as 2D echo patient is already on statin therapy as well as antiplatelet therapy with aspirin did continue. Also did request for every 4 neurochecks ? 10/14/2022; MRI came back negative for acute CVA. Patient to undergo subsequent evaluation with CTA of the head and neck as well as 2D echo 2. Dyslipidemia -Patient is on statin therapy, continued at home dose 3. Hypertension - Blood pressure controlled, home medications continued with dose adjustment as needed 4. DVT prophylaxis - On enoxaparin Time spent in the patient's overall evaluation,decision-making process, review of diagnostic data, adjustment of management, discussion with other providers, nursing nursing and ancillary staff involved in patient's care documentation, 35 Minutes Charges/Coding Visit Charges Inpatient E&M: 42881 Subs Hosp L2
[2022-10-14] MEDS: Aspirin E.C. 81 MG Tablet PO (08:10)
[2022-10-14] MEDS: Calcium Carb/Vitamin D 1 TABLET Tablet PO (08:10)
[2022-10-14] MEDS: Enoxaparin 40 MG/0.4 ML Syringe SC (08:10)
[2022-10-14 10:00] VITALS: BP 114/74; PULSE 68; RESP 16; TEMP 36.9; O2SAT 97
[2022-10-14 11:20] VITALS: BMI 27.1
--- NOTE | 2022-10-14 11:40 | CT_ITS ---
We are attempting to reach an attending provider to discuss findings. An addendum with communication details will be sent when the communication is complete. STUDY: CTA HEAD AND NECK WITH CONTRAST REASON FOR EXAM: Female, 72 years old. Neuro deficit, acute, stroke suspected RADIATION DOSAGE (If Supplied By Facility): CTDIvol = ( 29.20 ) mGy, DLP = ( 1368.26 ) mGycm TECHNIQUE: CT angiography was performed with a multi-detector CT scanner. Data acquisition was obtained from the skull base through the vertex following intravenous administration of IV 100mL [id number]-[id number]. MIP images were reconstructed from the axial data set. Post-processing of the angiographic images was performed, with multiplanar reformation and 3D reconstruction. Individualized dose optimization techniques were used for this CT. COMPARISON: No relevant priors. FINDINGS: Normal bilateral petrous carotid arteries. Normal right cavernous carotid artery with a normal supraclinoid bifurcation. Normal left cavernous carotid artery with a normal supraclinoid bifurcation. Normal right A1 segments of the anterior cerebral artery. Normal left A1 segments of the anterior cerebral artery. Normal intact anterior communicating artery (ACOM). Normal bilateral A2 segments of the anterior cerebral arteries. Normal right M1 and M2 segments of the middle cerebral arteries, with a normal M1 bifurcation. Normal left M1 and M2 segments of the middle cerebral arteries, with a normal M1 bifurcation. Very small but patent right posterior communicating artery (PCOM). No visible left posterior communicating artery (PCOM). Normal bilateral vertebral arteries. Normal basilar artery with a normal basilar bifurcation. The visualized bilateral superior cerebellar (SCA) arteries are normal. 50% stenosis of the right P1 segment and right proximal P2 segment. Normal left P1, , left P2 and visualized bilateral P3 segments of the posterior cerebral arteries. There is no demonstrated aneurysm of the [place]. There is no demonstrated abnormality of the visualized brain. AORTIC ARCH: Normal visualized aortic arch. Normal origins of the brachiocephalic, left common carotid, and left subclavian arteries. RIGHT CAROTID ARTERIES: Normal right common carotid artery (CCA). Normal right carotid bulb. Normal origin of the right internal carotid (ICA) artery without a hemodynamically significant stenosis. Normal visualized cervical portion of the right internal carotid artery. Normal origin of the right external carotid artery (ECA). LEFT CAROTID ARTERIES: Normal left common carotid artery (CCA). Normal left carotid bulb. Normal origin of the left internal carotid (ICA) artery without a hemodynamically significant stenosis. Normal visualized cervical portion of the left internal carotid artery. Normal origin of the left external carotid artery (ECA). VERTEBRAL ARTERIES: Normal bilateral vertebral arteries. The left is dominant. CT/STROKE CTA Head AND Neck W/Con IMPRESSION: 1. 50% stenosis of the right P1 segment and the proximal right P2 segment. 2. No other suspicious vaso-occlusive disease of the anterior and posterior intracranial circulation. 3. Normal bilateral cervical carotid arteries and vertebral arteries. 4. Normal aortic arch and origins of the great vessels. Electronically Signed: Lan Mathis MD at 12:33 EDT ,
--- NOTE | 2022-10-14 13:43 | PCM.DC.SUM ---
Providers Date of Admission: 10/13/22 Date of Discharge: 10/14/22 Primary Care Physician: Dr. Jason Rice MD Reason For Visit: ACUTE VERTIGO Diagnosis Discharge Diagnosis (1) Vertigo: Status: Acute Code(s): R42 - Dizziness and giddiness Plan Patient is a 72-year-old lady presented with acute vertigo 1. Acute vertigo ? Patient has been admitted to monitored bed currently undergoing evaluation for possible posterior circulation is CVA. As part of patient's management ordered MRI of the brain also ordered CT angio of the head and neck as well as 2D echo patient is already on statin therapy as well as antiplatelet therapy with aspirin did continue. Also did request for every 4 neurochecks ? 10/14/2022; MRI came back negative for acute CVA. Patient to undergo subsequent evaluation with CTA of the head and neck as well as 2D echo ? CT angio 1.? 50% stenosis of the right P1 segment and the proximal right P2 segment. 2.? No other suspicious vaso-occlusive disease of the anterior and posterior intracranial circulation. 3.? Normal bilateral cervical carotid arteries and vertebral arteries. 4.? Normal aortic arch and origins of the great vessels. ? 2. Dyslipidemia -Patient is on statin therapy, continued at home dose ? 10/14/2022 patient cholesterol not well controlled adjust the dose of simvastatin on discharge 3. Hypertension - Blood pressure controlled, home medications continued with dose adjustment as needed 4. DVT prophylaxis - On enoxaparin Time spent in the patient's overall evaluation,decision-making process, review of diagnostic data, adjustment of management, discussion with other providers, nursing nursing and ancillary staff involved in patient's care documentation, 35 Minutes Medications at Discharge Home Medications calcium carbonate 600 mg-vitamin D3 20 mcg (800 unit) tablet 1 ea PO DAILY 01/08/15 simvastatin 20 mg tablet 20 mg PO QHS 01/08/15 aspirin 81 mg tablet,delayed release 81 mg PO DAILY 10/13/22 lisinopril 2.5 mg tablet 2.5 mg PO DAILY 10/13/22 Hospital Course Summary of Care Provided Minutes Spent on Discharge: 35 Physical Exam Narrative GENERAL: cooperative HEENT: Atraumatic; normocephalic EYES; Anicteric, Normal Conjunctiva NECK; supple, normal thyroid, RESPIRATORY: Diminished to auscultation CARDIOVASCULAR: Regular S1 S2, GI: soft, normoactive bowel sounds, : No Renal angle tenderness; EXTREMITIES: No edema, no clubbing, MUSCULOSKELETAL: no muscle wasting NEURO: Awake; no lateralizing signs. SKIN: No Rash PSYCH; Flat affect Weight / BMI Weight Weight: 69.581 kg Body Mass Index (BMI) 27.1 ABG / Lab / Microbiology Data Result Diagrams: 10/14/22 06:13 10/14/22 06:13 Laboratory: Laboratory Results - last 24 hr 10/13/22 11:02: Troponin I High Sens 5 10/14/22 06:13: WBC 6.7, RBC 4.30, Hgb 12.8, Hct 38.2, MCV 88.8, MCH 29.8, MCHC 33.5, RDW Std Deviation 43.2, RDW Coeff of [place] 13.3, Plt Count 183, MPV 10.7, Immature Gran % (Auto) 0.300, Neut % (Auto) 51.6, Lymph % (Auto) 31.7, [place] % (Auto) 10.3 H, Eos % (Auto) 4.9, Baso % (Auto) 1.2 H, Absolute Neuts (auto) 3.5, Absolute Lymphs (auto) 2.13, Nucleated RBC % 0 10/14/22 06:13: Sodium 140, Potassium 4.0, Chloride 108 H, Carbon Dioxide 26.0, Anion Gap 6, BUN 16, Creatinine 1.00, Estim Creat Clear Calc 41.45, Est GFR (MDRD) Af Amer 70, Est GFR (MDRD) Non-Af 58 L, BUN/Creatinine Ratio 16.0, Glucose 93, Calcium 8.9, Phosphorus 4.1, Magnesium 2.5, Triglycerides 119, Cholesterol 203 H, LDL Cholesterol 117, VLDL Cholesterol 24, HDL Cholesterol 62 Radiography Diagnostic Testing: Radiology Impression Brain CT 10/13/22 14:21 IMPRESSION: Chronic involutional changes of the brain. Electronically Signed: David Baeza MD at 14:51 EDT , Brain MRI 10/13/22 15:51 IMPRESSION: 1. Empty sella can be associated with idiopathic intracranial hypertension. 2. No intracranial mass, hemorrhage, or acute territorial infarct. 3. No radiographically significant sinus disease. Electronically Signed: Farrukh Boyer MD at 17:20 EDT , Echocardiogram 10/13/22 17:30 Interpretation Summary The estimated ejection fraction is 65 %. Mild (1+) mitral valve insufficiency. Ordering Physician: Randolph Kennedy Performed By: Agustina Ledezma RDCS Head/Neck CTA 10/14/22 11:40 IMPRESSION: 1. 50% stenosis of the right P1 segment and the proximal right P2 segment. 2. No other suspicious vaso-occlusive disease of the anterior and posterior intracranial circulation. 3. Normal bilateral cervical carotid arteries and vertebral arteries. 4. Normal aortic arch and origins of the great vessels. Electronically Signed: Lan Mathis MD at 12:33 EDT , ADDENDUM: 10/14/22 1247 IMPRESSION: 1. 50% stenosis of the right P1 segment and the proximal right P2 segment. 2. No other suspicious vaso-occlusive disease of the anterior and posterior intracranial circulation. 3. Normal bilateral cervical carotid arteries and vertebral arteries. 4. Normal aortic arch and origins of the great vessels. N.B. : The above Results were Read Back by Lan Mathis MD to Anita Hughes RN, and understanding confirmed on 10/14/2022 12:40:50 (ET). Electronically Signed: Lan Mathis MD at 12:33 EDT , D/C Instructions Discharge Diet: No restrictions Discharge Activity: Return to Normal Activity Call your doctor if you observe: Fever of 101 or Higher, Shortness of breath, Fainting spells and Chest pain Meaningful Use Info Meaningful Use Diagnoses (Choose all that apply): None applicable Discharge Plan Admission Admit Date/Time: 10/13/22 15:24 Attending Provider: Randolph Kennedy Primary Care Provider: Jason Rice Discharge Orders/Prescriptions Prescriptions: Continued simvastatin 20 MG tablet 20 mg PO QHS Label Comments: Cholestrol calcium carbonate-vitamin D3 1 EACH tablet 1 ea PO DAILY Label Comments: Vitamin supplement aspirin 81 mg tablet,delayed release (DR/EC) 81 mg PO DAILY lisinopril 2.5 mg Tablet 2.5 mg PO DAILY Referrals / Follow Up: Jason Rice MD [Primary Care Provider] - Within 1 Week Disposition Disposition (needs filled in before D/C Order can be placed): Home, Self Care Charges/Coding Visit Charges Inpatient E&M: 78760 Disch Hosp >30min
== END 2022-10-14 13:51 | disposition home or self-care (01) ==
LOC: ED 15:41 → PCU 16:32
PROVIDERS: Physician Assistant; Admitting Provider Internal Medicine; Emergency Provider Emergency Medicine; PCP Family Medicine; Visit Provider Internal Medicine
DX: R42 Dizziness and giddiness (principal); I10 Essential (primary) hypertension; K76.0 Fatty (change of) liver, not elsewhere classified; E78.5 Hyperlipidemia, unspecified; R00.1 Bradycardia, unspecified; Z79.899 Other long term (current) drug therapy; Z79.82 Long term (current) use of aspirin
CPT/HCPCS: 36415; 70450; 70496; 70498; 70551; 74177; 80048; 80061; 81001; 82962; 83735; 84100; 84484; 85025; 93005; 93306; 96372; 99221; 99284; Q9967; A4216; G0378

== ENCOUNTER 2025-02-08 12:57 | Emergency (ER) | payer MEDICARE, SELFPAY ==
[2025-02-08 12:58] VITALS: BP 133/90; PULSE 50; RESP 16; TEMP 36.8; O2SAT 98; BMI 26.5
--- NOTE | 2025-02-08 13:44 | EKG12_ITS ---
Test Reason : GENERAL Blood Pressure : */* mmHG Vent. Rate : 49 BPM Atrial Rate : 49 BPM P-R Int : 198 ms QRS Dur : 76 ms QT Int : 446 ms P-R-T Axes : 10 -5 -8 degrees QTcB Int : 402 ms Sinus bradycardia with sinus arrhythmia Nonspecific T wave abnormality Abnormal ECG Confirmed by LORRAINE HUNTER, VALDEMAR ([id number]), market editor KARIS HOBSON ([id number]) on 02/10/2025 7:40:59 AM Referred By: Confirmed By: VALDEMAR PETERS MD
--- NOTE | 2025-02-08 13:44 | RAD_ITS ---
PROCEDURE: CHEST 1 VIEW (PORTABLE) 02/08/2025 REASON FOR EXAM: FEELS UNWELL TECHNIQUE: Frontal view of the chest. COMPARISON: None. FINDINGS: Hardware and support lines: None. Heart: Negative. Lungs: Negative for infiltrates, or pulmonary edema. Pleura: No pleural thickening. No pleural effusion. Mediastinum and aorta: Negative for hilar adenopathy. Mildly tortuous thoracic aorta. Bones: Mild degenerative changes in the shoulders. Age-appropriate degenerative changes of the spine. Other: Remainder of the exam negative. RAD/Chest 1 View (Portable) IMPRESSION: Negative for acute cardiopulmonary disease. Reading Location: [id number]
--- NOTE | 2025-02-08 13:46 | EX.ED.DYSGE1 ---
HPI History of Present Illness Chief Complaint: General Illness Narrative Narrative: Patient is a 74-year-old female presenting to the emergency department for abdominal pain, nausea and dizziness. Patient has a past medical history of lightheadedness, ataxia, hyperlipidemia. Patient states that she has experienced vertigo before. States that she did have a flu shot yesterday. States she felt normal yesterday. Denies any recent head trauma. Denies any neck pain or fevers. Denies any dysuria, hematuria, diarrhea. Denies any chest pain or shortness of breath. She reports that the dizziness is intermittent. Describes it as room spinning. She is asymptomatic in terms of dizziness on my evaluation of the patient. Denies any recent URI symptoms. [facility] Medical History Tonsillectomy planned Arthroplasty of knee planned Home Medications ?Medication ?Instructions ?Recorded ?Last Taken ?Type calcium 600 mg (as 1 ea PO Q12H 01/08/15 Unknown History carbonate)-vitamin D3 20 mcg (800 unit) tablet lisinopril 2.5 mg tablet 2.5 mg PO DAILY 10/13/22 Unknown History clopidogrel 75 mg tablet 75 mg PO DAILY 02/08/25 Unknown History latanoprost 0.005 % eye drops 1 drp ophthalmic (eye) QHS 02/08/25 Unknown History meclizine 25 mg tablet 25 mg PO BID PRN dizziness #14 tabs 02/08/25 Unknown Rx timolol maleate 0.5 % eye drops 1 drp ophthalmic (eye) Q12H 02/08/25 Unknown History Allergy/AdvReac Type Severity Reaction Status Date / Time No Known Allergies Allergy Verified 02/08/25 12:59 Family History Mother CVA (cerebral vascular accident) Social History Smoking Status: Never smoker ROS ROS ED ROS Narrative see HPI EXAM Physical Exam Narrative Exam Narrative: Vital signs: Reviewed General: Alert and oriented x 3. No acute distress HEENT: Head is normocephalic and atraumatic, sinuses nontender, pupils equal round and reactive. No nystagmus. Nares are patent. Oropharynx and throat exams normal. Neck: Supple without lymphadenopathy nontender Cardiovascular: Bradycardic rate and regular rhythm, no murmurs. No rubs or gallops. Normal S1 and S2 Respiratory: Clear to auscultation bilaterally. No wheezes, rales, rhonchi Abdominal: Soft and nontender. Normal bowel sounds. No guarding or rebound. Nonsurgical abdomen Extremities: No lower extremity edema. No tenderness. No bruising. Normal range of motion. Normal sensation. Skin: No rash or redness. Neurological: Cranial nerves II through XII are grossly intact. Normal strength and sensation. Normal cerebellar function The rest of the physical exam is unremarkable Const Vital Signs: 02/08/25 12:58 02/08/25 13:34 02/08/25 14:57 Temperature 98.2 F Temperature Source Oral Pulse Rate 50 L 46 L Respiratory Rate 16 24 H Respiratory Effort Normal Non-Labored Respiratory Pattern Normal Blood Pressure 133/90 H 171/84 H Blood Pressure Mean 104 113 Pulse Ox 98 98 Oxygen Delivery Method Room Air 02/08/25 15:49 02/08/25 16:42 Temperature 98.2 F Temperature Source Pulse Rate 46 L 45 L Respiratory Rate 17 16 Respiratory Effort Respiratory Pattern Blood Pressure 174/79 H 163/79 H Blood Pressure Mean 110 107 Pulse Ox 100 97 Oxygen Delivery Method Room Air NIHSS NIHSS Initial: 1a Level of Consciousness: 0 1b LOC Questions (Score 2 if aphasic/stupor): 0 1c LOC Commands (Only score 1st attempt): 0 2 Best Gaze (If aphasic, use reflexive mvmts.): 0 3 Visual: 0 4 Facial Palsy: 0 5 Motor Arm Right (UN = amputation/fusion): 0 5 Motor Arm Left: 0 6 Motor Leg Right: 0 6 Motor Leg Left: 0 7 Limb ataxia (Only + if out of proportion): 0 8 Sensory (Aphasia/stupor=0 or 1, coma=2): 0 9 Best Language: 0 10 Dysarthria (mute, coma=2, intubated=UN): 0 11 Extinction and Inattention (only scored if +): 0 Total Score: 0 MDM [facility] MDM Narrative Medical decision making narrative: Patient is a 74-year-old female presenting to the emergency department for abdominal pain, nausea and intermittent dizziness. Patient was seen and examined. Vitals are stable. Patient resting in bed comfortably in no acute distress. Differential includes but is not limited to: Vaccine reaction, anemia, electrolyte imbalance, gastroenteritis, colitis, UTI, peripheral cause of vertigo including BPPV or M?ni?re's. Less likely central cause including posterior cerebellar stroke given the patient has no ataxia, the dizziness is intermittent and not present at time of evaluation. Less likely ACS given patient has no chest pain or shortness of breath however will obtain an EKG to evaluate for any ischemic changes. Fluid bolus started and patient given meclizine. CBC with no leukocytosis and a normal hemoglobin. CMP with no significant abnormalities. Lipase within normal limits. CT of the brain with no acute intracranial abnormality. CT of the abdomen pelvis negative for acute intra-abdominal or pelvic pathology. Chest x-ray reviewed by myself, no opacity pneumothorax or widened mediastinum. Radiology read in agreement and read that is negative. EKG shows sinus bradycardia at a rate of 49 with a sinus arrhythmia. Nonspecific T wave abnormality. Appears similar to EKG done on 10/13/22. Prior visits with similar heart rate. Patient was reevaluated after fluids and meclizine. She states she is feeling much improved. Denying any dizziness at time of evaluation. She had ambulated to the bathroom and back and did well. Urinalysis with no evidence of urinary tract infection. Think patient is stable for outpatient management. Discharged with prescription for meclizine. Patient discharged from the Emergency Department. I do not feel that the patient's evaluation reveals any acute reason for admission at this time. I instructed them to either follow-up with their primary care physician or promptly return to the Emergency Department for reevaluation should symptoms worsen or new symptoms develop. I explained what symptoms would indicate the need to return to the emergency department. Shared decision making was used. The patient voiced understanding of the treatment plan and is agreeable with it. Clinical impression: Intermittent dizziness abdominal pain nausea History & Record Review Discussion w/independent historian: Patient and Significant other Lab Data Attestation: I reviewed the patient's lab results. Labs: Laboratory Results - last 24 hr 02/08/25 02/08/25 14:02 15:10 WBC 6.6 RBC 4.15 L Hgb 12.3 Hct 36.6 L MCV 88.2 MCH 29.6 MCHC 33.6 RDW Std Deviation 42.1 RDW Coeff of Lauren 13.0 Plt Count 174 MPV 10.4 Immature Gran % (Auto) 0.500 Neut % (Auto) 62.8 Lymph % (Auto) 21.6 Andrews % (Auto) 10.4 H Eos % (Auto) 3.8 Baso % (Auto) 0.9 Absolute Neuts (auto) 4.2 Absolute Lymphs (auto) 1.43 Nucleated RBC % 0 Sodium 137 Potassium 4.1 Chloride 104 Carbon Dioxide 23.3 Anion Gap 10 BUN 16 Creatinine 0.93 Estim Creat Clear Calc 48.40 L Est GFR (MDRD) Non-Af 64 BUN/Creatinine Ratio 17.2 Glucose 100 H Calcium 9.0 Total Bilirubin 0.48 AST 17 ALT 7 Alkaline Phosphatase 73 Total Protein 6.5 Albumin 4.0 Globulin 2.5 Albumin/Globulin Ratio 1.6 Lipase 44 Urine Color Straw Urine Clarity Clear Urine pH 8.0 Ur Specific [place] 1.015 Urine Protein Negative Urine Glucose (UA) Normal Urine Ketones Negative Urine Occult Blood Negative Urine Nitrite Negative Urine Bilirubin Negative Urine Urobilinogen Normal Ur Leukocyte Esterase Negative Urine RBC 0 SEEN Urine WBC 0 SEEN Ur Squamous Epith Cells 0 SEEN Urine Bacteria 0 SEEN Urine Mucus 0 SEEN Radiography Chest X-Ray - ED: 2 View, Read by ED Physician, Normal, No Acute Disease and No Infiltrates Diagnostic Testing: Clinical Impression(s) from Imaging Studies Chest X-Ray 02/08/25 13:44 IMPRESSION: Negative for acute cardiopulmonary disease. Reading Location: [facility] Abdomen/Pelvis CT 02/08/25 14:15 IMPRESSION: Negative for acute intra-abdominal or pelvic pathology. Reading Location: [facility] Brain CT 02/08/25 14:15 IMPRESSION: Age-appropriate appearance of the brain. Negative for acute intracranial pathology. Reading Location: [facility] Discharge Plan Triage Chief Complaint: General Illness ED Provider: Dyan Nelson Dx/Rx/DC Orders Clinical Impression: Nonspecific dizziness, Nausea, Abdominal pain after vaccination Instructions: Abdominal Pain, ED Dizziness, Uncertain Cause Prescriptions: New meclizine 25 mg tablet 25 mg PO BID PRN (Reason: dizziness) Qty: 14 0RF No Action calcium carbonate-vitamin D3 1 EACH tablet 1 ea PO Q12H Patient Comments: Vitamin supplement lisinopril 2.5 mg Tablet 2.5 mg PO DAILY clopidogrel 75 mg tablet 75 mg PO DAILY timolol maleate 0.5 % drops 1 drp ophthalmic (eye) Q12H latanoprost 0.005 % drops 1 drp ophthalmic (eye) QHS Primary Care Provider: Jason Rice Referrals: Jason Rice MD [Primary Care Provider, Family Practice] - As soon as possible Activity Restrictions/Additional Instructions: You can take the meclizine every 12 hours for dizziness if it returns. Drink lots of fluids. Your evaluation in the Emergency Department did not reveal any acute reason for admission. However, I want to emphasize that you may be early in the course of a disease process or illness even if it is not present. For this reason you should follow-up within 24 hours for reevaluation with either your primary care physician or if necessary back here in the Emergency Department. You should return to the Emergency Department immediately if your symptoms worsen or new symptoms develop. Print Language: Yi Disposition Disposition: Home, Self Care Discharge Date/Time: 02/08/25 16:43
[2025-02-08 14:09] LABS: Hematocrit 36.6 % (37-47); Hemoglobin 12.3 g/dL (12.0-15.0); Immature Granulocytes Count 0.030 X10^3/uL (0.0-0.0); Mean Corp Hgb Conc 33.6 g/dL (32-36); Mean Corpuscular Volume 88.2 fL (81-99); Mean Platelet Vol. 10.4 fl (6.2-12.0); NRBC Flagged by Analyzer 0 % (0-5); Platelet Count 174 K/mm3 (150-450); RBC Distribution Width CV 13.0 % (11.6-14.6); RBC Distribution Width SD 42.1 fl (35.1-43.9); Red Blood Count 4.15 M/mm3 (4.2-5.4); White Blood Count 6.6 K/mm3 (4.4-11.0)
[2025-02-08] MEDS: 0.9% Normal Saline (1000mL) 1,000 ML 1000 ML IV (14:12)
--- NOTE | 2025-02-08 14:15 | CT_ITS ---
PROCEDURE: ABDOMEN/PELVIS W IV CONT ONLY 02/08/2025 REASON FOR EXAM: ABDOMINAL PAIN Abdominal pain. TECHNIQUE: Procedure Code: [id number] Modality: CT Procedure: ABDOMEN/PELVIS W IV CONT ONLY Coronal and Sagittal reconstruction series were provided. CONTRAST: Isovue 370 VOLUME: 1 mL One or more dose reduction techniques were used (e.g., Automated exposure control, adjustment of the mA and/or kV according to patient size, use of iterative reconstruction technique. RADIATION DOSE SUMMARY: CTDlvol: 100 mGy DLP: 1763 mGycm COMPARISON: None. FINDINGS: Lung bases: Mild dependent atelectasis. ABDOMEN Liver: Negative. Biliary system: Negative. Negative for intrahepatic or extrahepatic ductal dilatation. Gallbladder: Negative. Negative for cholecystitis. Spleen: Negative. Pancreas: Negative. Adrenals: Negative. Kidneys: Mild right extrarenal pelvis. Mild bilateral renal atrophy. Negative for kidney stones, cysts or masses. Bowel: Moderate increased stool throughout the colon. Mild diverticulosis. No active diverticulitis. Negative for small or large-bowel obstruction. Appendix: Negative. Vasculature: Moderate atherosclerotic vascular calcifications of the abdominal aorta and its branches. Peritoneum / Retroperitoneum: Negative. PELVIS Lymph nodes: Negative for inguinal or iliac adenopathy. Bladder: Negative. Reproductive Organs: Atrophic uterus. No adnexal mass. Bones and Soft Tissues: Negative for fracture. Age appropriate appearance of the lumbar spine hips and pelvis. CT/Abdomen/Pelvis W IV Cont ONLY IMPRESSION: Negative for acute intra-abdominal or pelvic pathology. Reading Location: [id number]
--- NOTE | 2025-02-08 14:15 | CT_ITS ---
PROCEDURE: BRAIN/HEAD WITHOUT CONTRAST 02/08/2025 REASON FOR EXAM: INTERMITTENT DIZZINESS TECHNIQUE: Procedure Code: CTBR Modality: CT Procedure: BRAIN/HEAD WITHOUT CONTRAST Coronal and Sagittal reconstruction series were provided. One or more dose reduction techniques were used (e.g., Automated exposure control, adjustment of the mA and/or kV according to patient size, use of iterative reconstruction technique. RADIATION DOSE SUMMARY: DLP: 1763 mGycm COMPARISON: None. FINDINGS: Cerebrum: Mild loss ofcerebral volume. Negative for mass the frontal, parietal, temporal and occipital lobes negative. White matter: Negative for periventricular white matter changes. Cerebellum: Negative. Negative for mass. Negative for acute infarction. CSF pathways and ventricles: Negative. Negative for ventricular dilatation or obstruction. Basal ganglia and thalami: Mild basal ganglia calcifications. No acute infarctions. Brainstem: Midbrain, atiya and medulla negative. Calvarium: Negative. Negative for fractures. Orbital structures: Globes negative. Extraocular muscles negative. Paranasal sinuses: No air fluid levels. Remainder of the sinuses negative. Vascular structures: [id number] calcifications of the distal intracranial internal carotid arteries. Soft tissues: Negative. Other: : Negative for acute intracranial hemorrhage. Negative for acute infarction. Remainder of exam negative. CT/Brain/Head without Contrast IMPRESSION: Age-appropriate appearance of the brain. Negative for acute intracranial pathology. Reading Location: [id number]
[2025-02-08 14:24] LABS: AST(SGOT) 17 U/L (<=31); Alanine Aminotransfer ALT/SGPT 7 U/L (<=34); Albumin, Serum 4.0 g/dL (3.4-4.8); Alkaline Phosphatase 73 U/L (35-104); Anion Gap 10 (5-15); BUN 16 mg/dL (4-19); BUN/Creat Ratio 17.2 RATIO (10-20); Calcium,Total 9.0 mg/dL (7.6-11.0); Carbon Dioxide 23.3 mmol/L (21.0-32.0); Chloride 104 mmol/L (98-108); Estimated Creatinine Clearance 48.40 ml/min (50-250); Globulin 2.5 g/dL (2.2-4.2); Glucose 100 mg/dL (70-99); Lipase 44 U/L (13-75); Potassium 4.1 mmol/L (3.3-5.1)
[2025-02-08 14:57] VITALS: BP 171/84; PULSE 46; RESP 24; O2SAT 98
[2025-02-08 15:17] LABS: Mucous, Urine 0 SEEN /hpf (<or=2+); Red Blood Cells-Urine 0 SEEN /hpf (0-5); Squamous Epithelial Cells - UA 0 SEEN /hpf (5-10)
[2025-02-08 15:20] LABS: Color, Urine Straw (Yellow); Glucose, Dipstick Normal (Normal); Ketone-Dipstick Negative (Negative); Leukocyte Esterase-Dipstick Negative /ul (Negative); Nitrite-Dipstick Negative (Negative); Occult Blood-Urine Negative /ul (Negative); Protein-Dipstick Negative (Negative); Specific Gravity, Urine 1.015 (1.002-1.030); Urine Bilirubin Dipstick Negative (Negative)
[2025-02-08 15:49] VITALS: BP 174/79; PULSE 46; RESP 17; O2SAT 100
[2025-02-08 16:42] VITALS: BP 163/79; PULSE 45; RESP 16; TEMP 36.8; O2SAT 97
== END 2025-02-08 16:43 | disposition home or self-care (01) ==
PROVIDERS: Emergency Provider Student in an Organized Health Care Education/Training Program; PCP Family Medicine; Visit Provider Student in an Organized Health Care Education/Training Program
DX: R42 Dizziness and giddiness (principal); R10.9 Unspecified abdominal pain; R11.0 Nausea; Z79.899 Other long term (current) drug therapy; Z79.02 Long term (current) use of antithrombotics/antiplatelets
CPT/HCPCS: 70450; 71045; 74177; 80053; 81001; 83690; 85025; 93005; 96360; 96361; 99284; Q9967; A4216